=== PATIENT | female | born 1980 | race Caucasian/White ===

== ENCOUNTER 2019-03-12 19:02 | Inpatient (IN) | payer SELFPAY ==
[~2019-03-12] VITALS: Ht 163.8 cm; Wt 65.0 kg
[2019-03-13 01:39] VITALS: BP 119/83
== END 2019-03-13 05:13 | disposition left against medical advice (07) | DRG 831 ==
LOC: ED 20:52 → EDIP 21:44 → 3NE 22:17
PROVIDERS: ADMIT Family Medicine; ATTEND Family Medicine
DX: O23.01 Infections of kidney in pregnancy, first trimester (principal); A41.9 Sepsis, unspecified organism; O98.811 Other maternal infectious and parasitic diseases complicating pregnancy, first trimester; N83.201 Unspecified ovarian cyst, right side; O21.9 Vomiting of pregnancy, unspecified; Z3A.01 Less than 8 weeks gestation of pregnancy; Z85.41 Personal history of malignant neoplasm of cervix uteri
CPT/HCPCS: 36415; 76801; 80053; 80307; 81001; 83605; 83735; 84100; 84145; 84703; 85025; 87040; 87077; 87086; 87186; 93005; 99285; G0378; J0696; J1885; J2405; J1200; J2270; J7030

== ENCOUNTER 2020-05-05 11:57 | Emergency (ER) | payer SELFPAY ==
--- NOTE | 2020-05-05 12:05 | NUR ---
NIL X1 (CHECKED BATHROOM AND BACK CAREY)
--- NOTE | 2020-05-05 12:13 | NUR ---
NIL X2 (CHECKED BATHROOM AND BACK CAREY)
--- NOTE | 2020-05-05 12:20 | NUR ---
NIL X3 (CHECKED BATHROOM AND BACK CAREY) REMOVED FROM SYSTEM "LEFT WITHOUT BEING SEEN"
== END 2020-05-05 12:22 | disposition left against medical advice (07) ==
LOC: ED 12:11
DX: R07.89 Other chest pain (principal); Z53.21 Procedure and treatment not carried out due to patient leaving prior to being seen by health care provider

== ENCOUNTER 2020-05-10 05:53 | Emergency (ER) | payer SELFPAY ==
[~2020-05-10] VITALS: Ht 162.6 cm; Wt 53.6 kg
--- NOTE | 2020-05-10 06:25 | NUR ---
PT WORRIED ABOUT A BRUISE THAT IS NOT VISABLE ON HER LEFT THIGH, PT ALSO ASKED RN IF SHE COULD DO A VAGINAL SWAB ON HERSELF FOR STD CHECK.
[2020-05-10 06:28] LABS: MICROSCOPIC NOT IND
[2020-05-10 06:43] LABS: ALBUMIN 3.6 g/dL (3.4-5.0); ANION GAP 7 mmol/L (5-15); CALCIUM 9.1 mg/dL (8.5-10.1); CHLORIDE 109 mmol/L (98-107); CREATININE 0.78 mg/dL (0.55-1.02)
[2020-05-10 06:43] LABS: AMPHETAMINE SCREEN, URINE Positive (Negative); BARBITURATE SCREEN, URINE Negative (Negative); BENZODIAZEPINE SCREEN, URINE Negative (Negative); CANNABINOID SCREEN, URINE Negative (Negative); OPIATE SCREEN, URINE Negative (Negative)
[2020-05-10 06:48] LABS: COCAINE SCREEN, URINE Positive (Negative); METHADONE SCREEN, URINE Negative (Negative)
--- NOTE | 2020-05-10 06:52 | NUR ---
RECEIVED BEDSIDE REPORT FROM NOC ROSE MARY RAMIREZ.
[2020-05-10 07:00] VITALS: BP 150/91
--- NOTE | 2020-05-10 07:00 | NUR ---
PT SUPINE ON GURNEY, ABLE TO DOZE OFF. PT DENIES ANY PAIN AT THIS TIME AND HAS NO ADDITIONAL NEEDS. CALL LIGHT WITHIN REACH, FALL PRECAUTIONS IN PLACE. WILL CONTINUE TO MONITOR PT.
[2020-05-10 07:10] LABS: BASOPHILS # (AUTO) 0.15 x10^3/uL (0-0.1); BASOPHILS % (AUTO) 3 % (0-1); EOSINOPHILS # (AUTO) 0.03 x10^3/uL (0-0.4); EOSINOPHILS % (AUTO) 0 % (1-7); LYMPHOCYTES # (AUTO) 1.96 x10^3/uL (1-3.4); LYMPHOCYTES % (AUTO) 33 % (22-44); MD SCAN; MEAN CORPUSCULAR HEMOGLOBIN 26.9 pg (27.0-34.8); MEAN CORPUSCULAR HGB CONC 31.8 g/dL (32.4-35.8); MEAN CORPUSCULAR VOLUME 84.5 fL (80-100); MEAN PLATELET VOLUME 7.8 fL (7.4-10.4); MONOCYTES # (AUTO) 0.52 x10^3/uL (0.2-0.8); MONOCYTES % (AUTO) 9 % (2-9); NEUTROPHILS # (AUTO) 3.27 x10^3/uL (1.8-6.8); NEUTROPHILS % (AUTO) 55 % (42-75); PLATELET COUNT 326 x10^3/uL (130-400); RED BLOOD COUNT 4.11 x10^6/uL (3.82-5.3); RED CELL DISTRIBUTION WIDTH 22.1 % (9.6-15.2)
--- NOTE | 2020-05-10 07:39 | NUR ---
Patient given discharge instructions and they have confirmed that they understand the instructions. Patient ambulatory with steady gait.
== END 2020-05-10 07:40 | disposition home or self-care (01) ==
LOC: ED 07:27
DX: F14.10 Cocaine abuse, uncomplicated (principal); F15.10 Other stimulant abuse, uncomplicated; Z72.9 Problem related to lifestyle, unspecified
CPT/HCPCS: 36415; 80048; 80307; 81003; 82040; 84703; 85025; 99283

== ENCOUNTER 2020-07-23 11:19 | Emergency (ER) | payer SELFPAY | END 2020-07-23 12:02 | disposition left against medical advice (07) | LOC: ED 11:56 | DX: R42 Dizziness and giddiness (principal); Z53.21 Procedure and treatment not carried out due to patient leaving prior to being seen by health care provider ==

== ENCOUNTER 2020-09-26 03:32 | Emergency (ER) | payer SELFPAY ==
[~2020-09-26] VITALS: Ht 162.6 cm; Wt 59.8 kg
--- NOTE | 2020-09-26 03:47 | NUR ---
Patient presents to ER c/o vaginal bleeding after "rough sex." The occurrence was yesterday in the morning and yesterday night. Patient states the bleeding started approx 1.5-2 hours ago. She states she has swelling inside her labia. Also c/o pain in the rib area bilaterally. Patient states, "when I had my daugter I had multiple stitches inside after my . So I don't know if this opened something up." Patient is guarding her abd but in NAD. Respirations even and unlabored.
[2020-09-26 05:06] LABS: BASOPHILS % (AUTO) 1 % (0-1); EOSINOPHILS % (AUTO) 1 % (1-7); LYMPHOCYTES % (AUTO) 22 % (22-44); MEAN CORPUSCULAR HEMOGLOBIN 27.3 pg (27.0-34.8); MEAN CORPUSCULAR HGB CONC 32.6 g/dL (32.4-35.8); MEAN PLATELET VOLUME 7.5 fL (7.4-10.4); MONOCYTES % (AUTO) 8 % (2-9); NEUTROPHILS % (AUTO) 67 % (42-75); PLATELET COUNT 299 x10^3/uL (130-400); RED BLOOD COUNT 3.98 x10^6/uL (3.82-5.3); RED CELL DISTRIBUTION WIDTH 22.5 % (9.6-15.2)
[2020-09-26 05:16] VITALS: BP 158/100
[2020-09-26 05:16] LABS: ANION GAP 5 mmol/L (5-15); CALCIUM 8.5 mg/dL (8.5-10.1); CHLORIDE 111 mmol/L (98-107); CREATININE 0.69 mg/dL (0.55-1.02)
[2020-09-26 05:46] LABS: MD SCAN
--- NOTE | 2020-09-26 07:18 | NUR ---
PT LEFT WITHOUT DC PAPERS
== END 2020-09-26 07:20 | disposition home or self-care (01) ==
LOC: ED 07:10
DX: N93.8 Other specified abnormal uterine and vaginal bleeding (principal); D64.9 Anemia, unspecified; R10.2 Pelvic and perineal pain; Z88.0 Allergy status to penicillin; Z88.5 Allergy status to narcotic agent
CPT/HCPCS: 36415; 80048; 84703; 85025; 99283

== ENCOUNTER 2021-04-19 03:20 | Emergency (ER) | payer OTHER ==
--- NOTE | 2021-04-19 03:27 | NUR ---
NIL X 1
--- NOTE | 2021-04-19 03:40 | NUR ---
NIL X 2
--- NOTE | 2021-04-19 03:50 | NUR ---
NIL X 3
== END 2021-04-19 04:00 | disposition home or self-care (01) ==
LOC: ED 03:25
DX: M79.674 Pain in right toe(s) (principal); Z53.21 Procedure and treatment not carried out due to patient leaving prior to being seen by health care provider

== ENCOUNTER 2021-04-22 20:43 | Emergency (ER) | payer OTHER ==
--- NOTE | 2021-04-22 21:16 | NUR ---
NILX2
--- NOTE | 2021-04-22 21:38 | NUR ---
NILX3
== END 2021-04-22 21:40 | disposition left against medical advice (07) ==
LOC: ED 20:48
DX: M79.644 Pain in right finger(s) (principal); Z53.21 Procedure and treatment not carried out due to patient leaving prior to being seen by health care provider